=== PATIENT | female | born 1965 | race Caucasian/White ===

== ENCOUNTER → 2017-05-30 | Outpatient (CLI) | payer BC ==
[~2017-05-30] MED LIST: ATOR40TA24 PO; CIPR-344 PO; LISI-355 PO; LOR5/325 PO; NAPR220C12 PO; PRAV20TA65 PO
[2017-05-30 11:03] LABS: LDL CHOLESTEROL 108 mg/dl
== END ==
LOC: LAB 09:10
PROVIDERS: ATTEND Nurse Practitioner Family
DX: Z00.00 Encounter for general adult medical examination without abnormal findings (principal); I10 Essential (primary) hypertension; E78.5 Hyperlipidemia, unspecified
CPT/HCPCS: 36415; 82040; 82247; 82310; 82374; 82435; 82465; 82565; 82947; 83718; 84075; 84132; 84155; 84295; 84450; 84460; 84478; 84520

== ENCOUNTER 2017-11-09 10:00 | Emergency (ER) | payer BC ==
--- NOTE | 2017-11-09 10:03 | ER Report ---
History and Physical Time Seen By MD: 10:02 HPI/ROS CHIEF COMPLAINT: Cough shortness of breath or 2 days in the setting of smoking HISTORY OF PRESENT ILLNESS: Patient is a 51-year-old female here with complaints of shortness breath, cough, increased sputum production of active smoking history. She denies history of COPD or nebulizer treatments at home or inhaler use. She reports that over the past several days she has had worsening difficulty breathing, coughs. She denies taking decongestants at home, mucolytic 's or cough suppressants. She is well appearing at time of evaluation, afebrile , hemodynamically stable, maintaining sats on room air. REVIEW OF SYSTEMS: Constitutional: No fever, no chills. Eyes: No discharge. ENT: No sore throat. Cardiovascular: No chest pain, no palpitations. Respiratory: + cough, + shortness of breath. Gastrointestinal: No abdominal pain, no vomiting. Genitourinary: No hematuria. Musculoskeletal: No back pain. Skin: No rashes. Neurological: No headache. Allergies: Coded Allergies: amoxicillin (Verified Allergy, Mild, 11/09/17) Home Meds Active Scripts Azithromycin (ZITHROMAX) 250 Mg Tablet, 0 PO QDAY, #6 TAB Prov:MALLORY BRIDGES DO 11/09/17 Prednisone (PREDNISONE) 20 Mg Tablet, 40 MG PO QDAY for 5 Days, #10 TAB Prov:MALLORY BRIDGES DO 11/09/17 Albuterol Sulfate 90 Mcg/Act (PROAIR HFA 90 MCG/ACT) 8.5 Gm Hfa.aer.ad, 2 PUFF IH Q4-6H for 7 Days, INHALER Prov:MALLORY BRIDGES DO 11/09/17 Reported Medications Atorvastatin Calcium (LIPITOR) 40 Mg Tablet, 1 TAB PO QDAY, TAB 02/08/17 Lisinopril/Hydrochlorothiazide (LISINOPRIL-HCTZ 20-25 MG TAB) 1 Each Tablet, 1 EACH PO DAILY 02/08/17 Discontinued Reported Medications Naproxen Sodium (ALEVE) 220 Mg Capsule, 220 MG PO PRN, CAPSULE 02/16/15 Hx Smoking: Yes (1 [id number] X 8 YRS) Smoking Status: Current: Every Day Smoker Hx Alcohol Use: Yes Constitutional Vital Sign - Last 24 Hours 11/09/17 11/09/17 11/09/1723/18 10:04 12:00 12:05 12:12 Temp 98.2 Pulse 79 75 72 75 Resp 20 B/P (MAP) 135/75 107/81 (90) 123/64 (83) Pulse Ox 93 91 92 Physical Exam General Appearance: The patient is alert, has no immediate need for airway protection and no signs of toxicity. NAD Eyes: Pupils equal and round no pallor or injection. ENT, Mouth: Mucous membranes are moist. Respiratory: There are no retractions, lungs are clear to auscultation, + dry cough. Cardiovascular: Regular rate and rhythm. Gastrointestinal: Abdomen is soft and non tender, no masses, bowel sounds normal. Neurological: No focal deficits Skin: Warm and dry, no rashes. DIFFERENTIAL DIAGNOSIS: After history and physical exam differential diagnosis was considered for shortness of breath including but not limited to pulmonary infectious process, COPD, asthma, pulmonary embolus and congestive heart failure. Medical Decision Making EKG/Imaging Imaging Exam type: CHEST PA AND LAT History: Cough and shortness of breath Comparison: 02/16/2015. Findings: Both lungs are hyperexpanded but otherwise clear. Chronic appearing interstitial changes are noted but there is no focal infiltrate, effusion or pneumothorax. Right hemidiaphragm is elevated but unchanged. Heart is enlarged. The osseous structures demonstrate degenerative changes. IMPRESSION: 1. No acute cardiopulmonary disease. ED Course/Re-evaluation ED Course Patient is a 51-year-old female here with complaints of cough, shortness of breath for several days in the setting of active smoking history. Patient has not tried home remedies such as mucolytic's, decongestants, cough suppressants. Chest x-ray showed no acute consolidation or infiltrates. Due to the patient's history of smoking and likelihood of underlying component of COPD, she was treated for a COPD exacerbation. Patient was given DuoNeb treatment, prednisone and was given a prescription for prednisone, albuterol inhaler and Z-Olayinka since she had moderate relief of shortness breath after receiving nebulizer treatment. Patient was stable at time of discharge, in no acute respiratory distress, maintaining oxygen saturations. Decision to Disposition Date: Nov 09, 2017 Decision to Disposition Time: 12:00 Depart Departure Latest Vital Signs Vital Signs Date Time Temp Pulse Resp B/P (MAP) Pulse Ox O2 Delivery O2 Flow Rate FiO2 11/09/17 12:12 75 123/64 (83) 11/09/17 12:05 92 11/09/17 10:04 98.2 20 Impression: Primary Impression: Acute bronchitis Condition: Improved Disposition: HOME OR SELF-CARE Referrals: CRISTA SOLIMAN (PCP) New Scripts Azithromycin (ZITHROMAX) 250 Mg Tablet 0 PO QDAY, #6 TAB Prov: MALLORY BRIDGES DO 11/09/17 Prednisone (PREDNISONE) 20 Mg Tablet 40 MG PO QDAY for 5 Days, #10 TAB Prov: MALLORY BRIDGES DO 11/09/17 Albuterol Sulfate 90 Mcg/Act (PROAIR HFA 90 MCG/ACT) 8.5 Gm Hfa.aer.ad 2 PUFF IH Q4-6H for 7 Days, INHALER Prov: MALLORY BRIDGES DO 11/09/17 Patient Instructions: Acute Bronchitis (ED), Azithromycin (By mouth), Prednisone (By mouth) Additional Instructions: You may take 2 puffs of inhaler every 6 hours as needed for shortness of breath. Please take 40 mg or 2 tablets of prednisone daily for 5 days. Please take the azithromycin as prescribed. Please follow up with your family doctor in next 2 days. Return promptly if you develop worsening shortness breath, cough , fevers, weakness. MALLORY BRIDGES DO Nov 09, 2017 10:03
[2017-11-09] MEDS ORDERED: ALBUTEROL/IPRATROPIUM 3 ML NEB NEB ONE (10:40)
[2017-11-09] MEDS ORDERED: predniSONE 20 MG TAB PO ONE (10:40)
[2017-11-09] MEDS ORDERED: predniSONE 20 MG TAB ONE (10:51)
--- NOTE | 2017-11-09 11:17 | RADIOLOGY IMAGING REPORT ---
[place] [facility] [place] Kary Hassan : 1965 MR: [id number] V: [id number] EXAM DATE: ORDERING PHYSICIAN: MALLORY BRIDGES TECHNOLOGIST: [place] [facility] [place]ary Hassan : 1965 Visit/Account:[id number] Date of Sevice: 11/09/2017 Exam type: CHEST PA AND LAT History: Cough and shortness of breath Comparison: 02/16/2015. Findings: Both lungs are hyperexpanded but otherwise clear. Chronic appearing interstitial changes are noted bu t there is no focal infiltrate, effusion or pneumothorax. Right hemidiaphragm is elevated but unchang ed. Heart is enlarged. The osseous structures demonstrate degenerative changes. IMPRESSION: 1. No acute cardiopulmonary disease. Report Dictated By: Bhargav Nunez MD at 11/09/2017 11:11 AM Report E-Signed By: Bhargav Nunez MD at 11/09/2017 11:12 AM WSN:[id number]
[2017-11-09] MEDS ORDERED: PRED20TA6 PO (12:07)
[2017-11-09] MEDS ORDERED: ALBU8.5H IH (12:07)
[2017-11-09] MEDS ORDERED: AZIT-1 PO (12:08)
[2017-11-09 12:12] VITALS: BP 123/64
== END 2017-11-09 12:19 | disposition home or self-care (01) ==
LOC: ER 10:11
DX: J40 Bronchitis, not specified as acute or chronic (principal); F17.210 Nicotine dependence, cigarettes, uncomplicated; J44.1 Chronic obstructive pulmonary disease with (acute) exacerbation
CPT/HCPCS: 71046; 99283; J7512; J7620

== ENCOUNTER 2018-12-31 10:49 | Emergency (ER) | payer BC ==
[~2018-12-31 10:49] MED LIST changes: +ALBU8.5H IH; +AZIT-1 PO; +PRED20TA6 PO
--- NOTE | 2018-12-31 10:55 | ER Report ---
History and Physical Time Seen By MD: 10:51 HPI/ROS CHIEF COMPLAINT: Left-sided chest pain HISTORY OF PRESENT ILLNESS: Patient is a 53-year-old female here with complaints of left-sided reproducible chest pain since Saturday when she bent over. Patient reports that she felt a popping sensation and feels that she may pulled muscle which has been constantly painful since time of onset. Patient feels that the pain has not improved prompting evaluation today. Patient denies shortness breath, she does endorse mild dizziness primarily when getting up from a seated position. Patient is tolerating oral intake. Patient is afebrile, hemodynamically stable at time of evaluation. REVIEW OF SYSTEMS: Constitutional: No fever, no chills. Eyes: No discharge. ENT: No sore throat. Cardiovascular: + Reproducible left chest pain, no palpitations. Respiratory: No cough, no shortness of breath. Gastrointestinal: No abdominal pain, no vomiting. Genitourinary: No hematuria. Musculoskeletal: No back pain. Skin: No rashes. Neurological: No headache. Allergies: Coded Allergies: amoxicillin (Verified Allergy, Mild, 12/31/18) Home Meds Reported Medications Atorvastatin Calcium (LIPITOR) 40 Mg Tablet, 1 TAB PO QDAY, TAB 02/08/17 Lisinopril/Hydrochlorothiazide (LISINOPRIL-HCTZ 20-25 MG TAB) 1 Each Tablet, 1 EACH PO DAILY 02/08/17 Discontinued Scripts Azithromycin (ZITHROMAX) 250 Mg Tablet, 0 PO QDAY, #6 TAB Prov:MALLORY BRIDGES DO 11/09/17 Prednisone (PREDNISONE) 20 Mg Tablet, 40 MG PO QDAY for 5 Days, #10 TAB Prov:MALLORY BRIDGES DO 11/09/17 Albuterol Sulfate 90 Mcg/Act (PROAIR HFA 90 MCG/ACT) 8.5 Gm Hfa.aer.ad, 2 PUFF IH Q4-6H for 7 Days, INHALER Prov:MALLORY BRIDGES DO 11/09/17 Hx Smoking: Yes (1 [id number] X 8 YRS) Smoking Status: Current: Every Day Smoker Hx Substance Use Disorder: No Hx Alcohol Use: Yes Constitutional Vital Sign - Last 24 Hours 12/31/18 12/31/18 12/31/18 12/31/18 10:55 11:00 11:05 11:54 Temp 98.1 Pulse 77 83 Resp 18 8 B/P (MAP) 115/82 99/64 (76) 109/67 (81) 105/69 (81) Pulse Ox 91 94 12/31/18 12/31/18 12/31/18 12:00 12:15 12:30 Pulse 77 70 Resp 14 14 B/P (MAP) 102/72 (82) 100/70 (80) 95/65 (75) Pulse Ox 92 93 Physical Exam General Appearance: The patient is alert, has no immediate need for airway protection and no signs of toxicity. Uncomfortable appearing Eyes: Pupils equal and round no pallor or injection. ENT, Mouth: Mucous membranes are moist. Respiratory: There are no retractions, lungs are clear to auscultation. Cardiovascular: Regular rate and rhythm. Gastrointestinal: Abdomen is soft and non tender, no masses, bowel sounds normal. Neurological: No focal neurological deficits Skin: Warm and dry, no rashes. Musculoskeletal: Neck is supple non tender. + Reproducible tenderness on palpation originating under the left breast extending into the left axillary region. Extremities are nontender, nonswollen and have full range of motion. DIFFERENTIAL DIAGNOSIS: After history and physical exam differential diagnosis was considered for chest pain including but not limited to myocardial ischemia, pericarditis pulmonary embolus, chest wall pain, pleural inflammation and pulmonary infectious causes. Medical Decision Making Data Points Result Diagram: 12/31/18 1056 12/31/18 1056 Laboratory Hematology Test 12/31/18 10:56 White Blood Count 14.1 k/uL (4.5-11.0) H Red Blood Count 4.75 M/uL (4.17-5.56) Hemoglobin 15.4 g/dL (12.0-16.0) Hematocrit 43.4 % (34.0-47.0) Mean Corpuscular Volume 91.4 fL (80.0-96.0) Mean Corpuscular Hemoglobin 32.4 pg (26.0-33.0) Mean Corpuscular Hemoglobin Concent 35.4 g/dL (32.0-36.0) Red Cell Distribution Width 13.8 % (11.5-14.5) Platelet Count 352 K/uL (150-450) Mean Platelet Volume 8.8 fL (7.2-11.1) Neutrophils (%) (Auto) 70.0 % (39.4-72.5) Lymphocytes (%) (Auto) 20.3 % (17.6-49.6) Monocytes (%) (Auto) 7.4 % (4.1-12.4) Eosinophils (%) (Auto) 1.6 % (0.4-6.7) Basophils (%) (Auto) 0.7 % (0.3-1.4) Nucleated RBC Relative Count (auto) 0.0 /100WBC Neutrophils # (Auto) 9.9 K/uL (2.0-7.4) H Lymphocytes # (Auto) 2.9 K/uL (1.3-3.6) Monocytes # (Auto) 1.0 K/uL (0.3-1.0) Eosinophils # (Auto) 0.2 K/uL (0.0-0.5) Basophils # (Auto) 0.1 K/uL (0.0-0.1) Nucleated RBC Absolute Count (auto) 0.00 K/uL Chemistry Test 12/31/18 10:56 Sodium Level 137 mmol/L (137-145) Potassium Level 4.0 mmol/L (3.5-5.0) Chloride Level 104 mmol/L (98-107) Carbon Dioxide Level 23 mmol/L (22-31) Blood Urea Nitrogen 13 mg/dl (7-18) Creatinine 0.90 mg/dl (0.52-1.04) Glomerular Filtration Rate Calc > 60.0 Random Glucose 96 mg/dl (75-110) Calcium Level 9.9 mg/dl (8.4-10.2) Total Bilirubin 0.7 mg/dl (0.2-1.3) Aspartate Amino Transf (AST/SGOT) 23 U/L (0-35) Alanine Aminotransferase (ALT/SGPT) 39 U/L (0-56) Alkaline Phosphatase 103 U/L (0-126) Troponin I < 0.012 ng/ml Total Protein 7.5 g/dl (6.3-8.2) Albumin 4.2 g/dl (3.5-5.0) Coagulation Test 12/31/18 10:56 Prothrombin Time 12.4 seconds (12.0-14.4) Prothromb Time International Ratio 0.92 Activated Partial Thromboplast Time 25 seconds (23-35) EKG/Imaging EKG Interpretation 12 lead EKG: Normal sinus rhythm ventricular rate 80, QTC 422, no ischemic findings or arrhythmias Rhythm: normal sinus rhythm Wilkinson: normal QRS: normal ST segments: normal Imaging PATIENT NAME: Kary Hassan : 1965 MR: [id number] V: [id number] EXAM DATE: [id number] ORDERING PHYSICIAN: MALLORY BRIDGES TECHNOLOGIST: [place] [facility] [place]: Kary Hassan : 1965 Visit/Account:[id number] Date of Sevice: 12/31/2018 Exam type: CHEST PA LAT History: Chest Pain, rib pain, dizziness Comparison: November 09, 2017. Findings: The lungs are free of acute effusions, infiltrates or edema. The cardiac dionicio houette is normal in size. There is no evidence of a pneumothorax or pneumomediastinum. IMPRESSION: 1. No acute cardiac pulmonary process is seen Report Dictated By: Trupti Valdez MD at 12/31/2018 11:31 AM ED Course/Re-evaluation ED Course Patient is a 53-year-old female here with complaints of reproducible chest pain originating under the left breast extending into the left axilla. Patient reports that the pain started when bending over on Saturday and has been constant prompting evaluation. Troponin was negative, EKG showed no ischemic findings or arrhythmias. Due to the reproducible nature of the patient's pain, lidocaine patch was applied, patient was given Valium, Toradol and fentanyl with significant relief of symptoms. Chest x-ray showed no acute findings. I reevaluated the patient and she voiced that her pain had improved significantly. Scripts provided for tramadol, Flexeril and lidocaine patches. Patient voiced understanding of plan. Recommend close PCP follow-up. Return precautions provided Decision to Disposition Date: Dec 31, 2018 Decision to Disposition Time: 12:36 Depart Departure Latest Vital Signs Vital Signs Date Time Temp Pulse Resp B/P (MAP) Pulse Ox O2 Delivery O2 Flow Rate FiO2 12/31/18 12:30 70 14 95/65 (75) 93 12/31/18 10:55 98.1 Impression: Primary Impression: Musculoskeletal chest pain Condition: Improved Disposition: HOME OR SELF-CARE Referrals: CRISTA SOLIMAN (PCP) New Scripts Lidocaine (Lidocaine) 5 % Adh..patch 1 PATCH TD Q12H PRN for PAIN, #20 PATCH Prov: BRIDGESMALLORY DO 12/31/18 Tramadol Hcl (TRAMADOL HCL) 50 Mg Tablet 50 MG PO Q6H PRN for PAIN, #12 TAB 0 Refills Prov: BRIDGESMALLORY Kimberly DO 12/31/18 Cyclobenzaprine Hcl (CYCLOBENZAPRINE HCL) 10 Mg Tablet 10 MG PO Q8H PRN for MUSCLE SPASMS, #20 TAB 0 Refills Prov: BRIDGESMALLORY S DO 12/31/18 Departure Forms: ER Transition Record, Medications Reconciliation, Patient Portal Information Patient Instructions: Musculoskeletal Pain (ED) Additional Instructions: You may apply 1 lidocaine patch for 12 hours, remove and wait 12 hours before applying another patch. You may take 1 tramadol every 6-8 hours as needed for breakthrough pain control. You may take Flexeril 1 tablet every 8 hours as needed for muscle spasm. Please follow up closely with your family provider in the next 3-5 days for repeat evaluation and care. Please return promptly if you develop increasing shortness breath, worsening chest pain, fevers or chills, cough MALLORY BRIDGES DO Dec 31, 2018 10:55
[2018-12-31] MEDS ORDERED: NS(*) 0.9% 1000 ML BAG 1,000 ML IV ONE (11:00)
[2018-12-31] MEDS ORDERED: KETOROLAC 30 MG/ML VIAL IVP ONE (11:00)
[2018-12-31] MEDS ORDERED: fentaNYL CITR 100 MCG/2 ML AMP IVP ONE (11:00)
--- NOTE | 2018-12-31 11:12 | EKG ---
FACILITY: [facility] [place] PATIENT NAME: JULIÁN BUI : [id number] MR: [id number] V: [id number] EXAM DATE: ORDERING PHYSICIAN: MALLORY BRIDGES TECHNOLOGIST: ITZEL Henley Reason : Blood Pressure : / mmHG Vent. Rate : 080 BPM Atrial Rate : 080 BPM P-R Int : 150 ms QRS Dur : 082 ms QT Int : 366 ms P-R-T Axes : 084 064 016 degrees QTc Int : 422 ms Sinus rhythm Poor R wave progression anteriorly No acute appearing findings Artifact in several limb leads - repeat if needed Confirmed by BIANCA VALLEJO ([id number]) on 12/31/2018 12:43:09 PM Referred By: YULIANA Confirmed By:BIANCA VALLEJO
[2018-12-31 11:16] LABS: PLATELET COUNT, AUTOMATED 352 K/uL (150-450)
[2018-12-31 11:20] LABS: INR 0.92
[2018-12-31] MEDS ORDERED: DIAZEPAM 50 MG/10 ML MDV IVP ONE (11:20)
--- NOTE | 2018-12-31 11:42 | RADIOLOGY IMAGING REPORT ---
FACILITY: [facility] - [place] PATIENT NAME: Kary Hassan : 1965 MR: [id number] V: [id number] EXAM DATE: ORDERING PHYSICIAN: MALLORY BRIDGES TECHNOLOGIST: [place] [facility] [place]ary Hassan : 1965 Visit/Account:[id number] Date of Sevice: 12/31/2018 Exam type: CHEST PA LAT History: Chest Pain, rib pain, dizziness Comparison: November 09, 2017. Findings: The lungs are free of acute effusions, infiltrates or edema. The cardiac silhouette is normal in siz e. There is no evidence of a pneumothorax or pneumomediastinum. IMPRESSION: 1. No acute cardiac pulmonary process is seen Report Dictated By: Trupti Valdez MD at 12/31/2018 11:31 AM Report E-Signed By: Trupti Valdez MD at 12/31/2018 11:35 AM WSN:[id number]
[2018-12-31] MEDS ORDERED: LIDOCAINE 5% PATCH TP SCH (12:10)
[2018-12-31 12:30] VITALS: BP 95/65
[2018-12-31] MEDS ORDERED: CYCL10TA29 PO (12:42)
[2018-12-31] MEDS ORDERED: LIDO700A19 TD (12:42)
[2018-12-31] MEDS ORDERED: TRAM-420 PO (12:42)
[2018-12-31] MEDS ORDERED: PATCH REMOVAL 1 EA TP SCH (21:00)
== END 2018-12-31 12:51 | disposition home or self-care (01) ==
LOC: ER 11:04
DX: R07.89 Other chest pain (principal)
CPT/HCPCS: 71046; 84484; 85025; 85610; 85730; 93005; 96361; 96374; 96375; 99284; J1885; J3010; J3360; J7030; 82040; 82247; 82310; 82374; 82435; 82565; 82947; 84075; 84132; 84155; 84295; 84450; 84460; 84520